=== PATIENT | male | born 1990 ===

== ENCOUNTER 2020-07-02 11:45 | Outpatient (REF) | payer OTHER, SELFPAY | END 2020-07-02 11:46 | disposition home or self-care (01) | LOC: HO.LAB 11:45 | PROVIDERS: Visit Provider Internal Medicine | DX: Z20.828 Contact with and (suspected) exposure to other viral communicable diseases (principal) | CPT/HCPCS: U0003 ==

== ENCOUNTER 2023-12-26 11:44 | Outpatient (AMB) | payer OTHER, SELFPAY ==
[2023-12-26 12:09] VITALS: BP 120/72; PULSE 101; O2SAT 98; BMI 26.0
--- NOTE | 2023-12-26 12:09 | MHC.PC.OV ---
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 He is requesting a tetanus booster. 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 SurgHx: R eyebrow laceration & repair FHx: Mom: HTN, HLD. Dad: Hypothroidism, Heart Palpitations. SocHx: Smoked 1/2 ppd x 9 yrs and now occassional. EtOH: 17-18 dr a week. up to 6 dr in a day. No drugs PFSH Medical History (Updated 12/26/23 @ 12:46 by Carson Gupta) OCD (obsessive compulsive disorder) Anxiety IBS (irritable bowel syndrome) Palpitations Family History (Updated 12/26/23 @ 12:24 by Josseline Rhodes [facility]) Paternal Uncle Substance abuse Mental health disorder Maternal Grandfather Mental health disorder Mother Mental health disorder High blood pressure High cholesterol Father Hypothyroid Maternal Grandmother High blood pressure Paternal Grandfather Cancer of kidney Paternal Grandmother Cardiovascular disease Social History (Updated 12/26/23 @ 12:28 by Josseline Rhodes [facility]) Household Members: Family Both parents involved: Yes Caregiver staying overnight: No Housing: House Are you a primary health care manager to a significant other at home: No Do you presently have visiting nurse or other home services: No 75 years or older and lives alone: No Alcohol intake: current Patient Tobacco Use Status: Current someday Tobacco user Cigarette Packs Per Day: 2 Cigarettes Per Day: 2 e-Cigarette/Vaping Use: Former Use service: No Current occupational status: employed Current occupation: [employer], [employer]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 1. Little interest or pleasure in doing things: not at all 2. Feeling down, depressed, or hopeless: not at all 3. Trouble falling or staying asleep, or sleeping too much: several days 4. Feeling tired or having little energy: not at all 5. Poor appetite or overeating: not at all 6. Feeling bad about yourself - or that you are a failure or have let yourself or your family down: several days 7. Trouble concentrating on things, such as reading the newspaper or watching television: not at all 8. Moving or speaking so slowly that other people could have noticed. Or the opposite - being so fidgety or restless that you have been moving around a lot more than usual: not at all 9. Thoughts that you would be better off or of hurting yourself in some way: not at all Total score: 2 Depression Screening Interpretation: Negative Depression Screening Done: Yes 67951 - PHQ-9 Billing: Yes Source: Developed by Drs. Nii Rodrigues, Angella Funk, Tylor Reese and colleagues, with an educational elva from [employer]. Thrive Questionnaire Date Thrive assessed: 12/26/23 I am a: Patient What is your living situation today?: I have a steady place to live Within the past 12 months, did the food you bought not last and you didn't have the money to get more?: Never true Within the past 12 months, did you worry whether your food would run out before you got money to buy more?: Never true Do you have trouble paying for medicines?: No Do you have trouble getting transportation to medical appointments?: No Do you have trouble paying your heating and electricity bill?: No Do you have trouble taking care of your child, family member or friend?: No Do you have trouble with day-to-day activities such as bathing, preparing meals, shopping, managing finances, etc.?: No Are you currently unemployed and looking for a job?: No Are you interested in more education?: Yes THRIVE Score: 0 PIEDAD-7 AMB Questionnaire PIEDAD-7 Date PIEDAD - 7 assessed: 12/26/23 Feeling nervous, anxious, or on edge: 1 = Several days Not being able to stop or control worryin = Several days Worrying too much about different things: 1 = Several days Trouble relaxin = Not at all Being so restless that it is hard to sit still: 0 = Not at all Becoming easily annoyed or irritable: 1 = Several days Feeling afraid as if something awful might happen: 0 = Not at all Total PIEDAD-7 score (0-4 normal; 5-9 mild; 10-14 moderate; 15-21 severe): 4 Source: Developed by Drs. Nii Rodrigues, Angella Funk, Tylor Reese and colleagues, with an educational elva from [employer]. PIEDAD-7 Assessment Billing PIEDAD-7 Assessment Tool: PIEDAD-7 Assessment 12901 Review of Systems Const Denies chills, Denies fatigue, Denies fever(s), Denies headache(s) and Denies weakness ENT Denies dizziness and Denies headache(s) Card Denies chest pain, Denies lightheadedness, Denies dyspnea and Denies other (Palpitations) Resp Denies cough, Denies dyspnea, Denies wheezing and Denies other ( shortness of breath) Musc Denies numbness and Denies tingling Neuro Denies dizziness, Denies headache(s), Denies numbness, Denies tingling, Denies paresthesias and Denies weakness Psych Denies anxiety and Denies depression Endo Denies fatigue Aller/Immun Denies wheezing Physical exam (Primary Care) Vital Signs: Last Vital Signs Pulse 101 H 12/26/23 12:09 BP 120/72 12/26/23 12:09 Pulse Ox 98 12/26/23 12:09 Oxygen Delivery Method Room Air 12/26/23 12:09 BMI result Body Mass Index 26.0 Tobacco/Smoking Status: Tobacco use Status Tobacco use date assessed 12/26/23 12/26/23 12:34 Patient Tobacco Use Status Current someday Tobacco 12/26/23 12:34 e-Cigarette/Vaping Use Former Use 12/26/23 12:34 PHQ-9: PHQ-9 Score PHQ-9: Total score 2 12/26/23 12:39 Depression Screening Interpretation: Negative Thrive Assessment: Date of Thrive Assessment Date Thrive assessed 12/26/23 12/26/23 12:34 Const General: no acute distress and well developed Nutritional Appearance: well nourished Orientation/consciousness: patient oriented x3 HENMT Head: Yes normocephalic and Yes atraumatic Eyes General: appearance normal, both eyes and all related structures Pupils: Equal, round and reactive pupils present EOM: EOMs intact bilaterally Resp Effort & Inspection: normal respiratory effort Auscultation: clear to auscultation bilaterally Cardio Rate: regular rate Rhythm: regular rhythm Heart sounds: S1 normal heart sound present, S2 normal heart sound present, no gallops, no murmurs and no rubs Neuro General: patient oriented x3 and gait normal Cranial nerves: Yes Equal, round and reactive pupils present Psych Affect: normal affect Assessment and Plan Assessment & Plan (1) Bumps on skin: Code(s): L98.9 - Disorder of the skin and subcutaneous tissue, unspecified Plan: These?appear?to?be?lipomas. Patient?would?like?referral?to?Dermatology?to?discuss (2) Anxiety: Code(s): F41.9 - Anxiety disorder, unspecified Plan: History?of?anxiety?as?a?child Patient?says?that?he?manages?his?anxiety No?current?complaints. He?can?let?me?know?if?he?is?having?any?problems (3) Smoker: Code(s): F17.200 - Nicotine dependence, unspecified, uncomplicated Plan: Intermittent?smoker Recommended?trying?to?quit (4) Alcohol abuse: Code(s): F10.10 - Alcohol abuse, uncomplicated Plan: Encouraged?weaning?down?alcohol?use He?can?let?me?know?if?he?is?having?any?difficulty?with?the (5) Laboratory exam ordered as part of routine general medical examination: Code(s): Z00.00 - Encounter for general adult medical examination without abnormal findings Plan: Check?labs Orders: Orders TDaP Immunization Today Z23 - Encounter for immunization Microalbumin, Random (w Creat) Today I10 - Essential (primary) hypertension CT NG by PCR Today Z11.3 - Encounter for screening for infections with a predominantly sexual mode of transmission Comprehensive Anabel. Panel Fast Today Z00.00 - Encounter for general adult medical examination without abnormal findings Complete Blood Count Auto Diff Today Z00.00 - Encounter for general adult medical examination without abnormal findings Lipid Panel Today Z00.00 - Encounter for general adult medical examination without abnormal findings TSH reflex Free T4 Today Z00.00 - Encounter for general adult medical examination without abnormal findings UA and rflx microscopic Today Z00.00 - Encounter for general adult medical examination without abnormal findings HIV Ab/Ag Today Z11.3 - Encounter for screening for infections with a predominantly sexual mode of transmission Hepatitis B,C Profile Today Z11.3 - Encounter for screening for infections with a predominantly sexual mode of transmission Syphilis Screen Today Z11.3 - Encounter for screening for infections with a predominantly sexual mode of transmission Referrals Dermatology Referral L98.9 - Disorder of the skin and subcutaneous tissue, unspecified Medications: New Boostrix Tdap (diphth,pertus(acell),tetanus) 0.5 mL IM ONCE 0.5 mL 0RF NS Z23 - Encounter for immunization Coding Level of Care Code New Pt Level 3 (00688) Diagnoses Bumps on skin L98.9 Anxiety F41.9 Smoker F17.200 Alcohol abuse F10.10 Laboratory exam ordered as part of routine general medical examination Z00.00 Additional Codes PIEDAD-7 Assessment Billing - PIEDAD-7 Assessment Tool: PIEDAD-7 Assessment 24974 ([id number])
== END 2023-12-26 13:50 | disposition home or self-care (01) ==
PROVIDERS: PCP Family Medicine; Visit Provider Family Medicine
DX: F41.9 Anxiety disorder, unspecified (principal); L98.9 Disorder of the skin and subcutaneous tissue, unspecified; F17.210 Nicotine dependence, cigarettes, uncomplicated; F10.10 Alcohol abuse, uncomplicated
CPT/HCPCS: 99203

== ENCOUNTER 2024-02-20 07:37 | Outpatient (REF) | payer OTHER, SELFPAY ==
[2024-02-20 11:28] LABS: MANUAL DIFF FLAG NO
[2024-02-20 11:31] LABS: Basophils Percent Auto 0.7 % (0-2); Eosinophils Absolute Auto 0.1 X10*3/uL (0.0-0.4); Eosinophils Percent Auto 2.4 % (0-4); Hematocrit 42.9 % (42.0-52.0); Hemoglobin 14.7 g/dl (14.0-18.0); Imm Gran Abs Auto 0.02 X10*3/uL (0.00-0.03); Imm Gran Pct Auto 0.4 % (0.0-0.4); Lymphocytes Absolute Auto 2.4 X10*3/uL (1.2-4.9); Lymphocytes Percent Auto 44.1 % (20-40); Mean Corpuscular HGB Conc 34.3 g/dl (31.0-36.0); Mean Corpuscular Hemoglobin 29.6 pg (27.0-33.0); Mean Corpuscular Volume 86.3 fL (80.0-98.0); Mean Platelet Volume 9.7 fL (9.4-12.4); Monocytes Absolute Auto 0.5 X10*3/uL (0.1-1.2); Monocytes Percent Auto 8.3 % (2-11); Neutrophils Absolute Auto 2.4 x10*3/uL (2.0-8.3); Neutrophils Percent Auto 44.1 % (45-73); Platelet Count 251 X10*3/uL (160-400); Red Blood Count 4.97 X10*6/uL (4.60-5.80); Red Cell Distribution Width 12.7 % (11.0-16.0); White Blood Count 5.5 X10*3/uL (4.8-10.8)
[2024-02-20 11:50] LABS: Appearance Urine Clear; Color Urine Yellow; Glucose Urine UA Negative (Negative); Leukocyte Esterase Urine Negative (Negative); Nitrite Urine Negative (Negative); Specific Gravity - Urine 1.015 (1.005-1.025); Urine Blood Negative (Negative); Urine Ketones Negative (Negative); Urine Protein Negative (Neg-Trace)
[2024-02-20 12:06] LABS: Alanine Aminotransferase 35 U/L (0-40); Albumin Level 4.5 g/dL (3.5-5.0); Alkaline Phosphatase 53 U/L (39-117); Anion Gap 10 (12-20); Aspartate Amino Transferase 35 U/L (5-37); Bilirubin Total 0.5 mg/dL (0.0-1.0); Blood Urea Nitrogen 16 mg/dL (9-16); Calcium 9.8 mg/dL (8.4-10.2); Carbon Dioxide 30 mmol/L (22-29); Chloride 102 mmol/L (96-108); Cholesterol 273 mg/dL (<200); Estimated Glomerular Filt Rate > 60; Glucose Fasting 91 mg/dL (60-99); HDL Cholesterol 52 mg/dL (>40); LDL Cholesterol Calculated 178 mg/dL (<100); Sodium 138 mmol/L (135-145); Total Protein 7.5 g/dL (6.5-8.0); Triglycerides 217 mg/dL (<150)
[2024-02-20 12:20] LABS: HBS Num1 30.35 mIU/mL (0-7.99); HBc Num1 0.13 S/CO (0.00-0.79); HBsAGNum1 0.32 S/CO (0.00-0.99); HIV AB/AG Nonreactive (Nonreactive); Hepatitis B Core Antibody Nonreactive (Nonreactive); Hepatitis B Surface Antigen Negative (Negative); ~HepC Num1 0.09 S/CO (0.00-0.79); ~Hepatitis B Surface Antibody REACTIVE (Nonreactive); ~Hepatitis C Antibody Nonreactive (Nonreactive)
[2024-02-20 12:21] LABS: Syphilis Screen Nonreactive (Nonreactive)
[2024-02-20 13:03] LABS: Creatinine Urine 118.04 mg/dL
== END 2024-02-20 07:38 | disposition home or self-care (01) ==
LOC: HO.WFDLDS 07:37
PROVIDERS: Visit Provider Family Medicine
DX: Z00.00 Encounter for general adult medical examination without abnormal findings (principal); I10 Essential (primary) hypertension; Z11.3 Encounter for screening for infections with a predominantly sexual mode of transmission
CPT/HCPCS: 36415; 80053; 80061; 81003; 82043; 82570; 84443; 85025; 86704; 86706; 86780; 86803; 87340; 87389

== ENCOUNTER → 2024-03-10 09:01 | Outpatient (AMB) | payer OTHER, SELFPAY ==
--- NOTE | 2024-03-10 09:11 | AM.OFFVISNUR ---
Intake Visit Reasons: t booster shot Allergies No Known Allergies Allergy (Verified 12/26/23 12:13) Assessment & Plan Assessment & Plan Orders: Orders TDaP Immunization Today Z23 - Encounter for immunization Medications: New Boostrix Tdap (diphth,pertus(acell),tetanus) 0.5 mL IM ONCE 0.5 mL 0RF NS Z23 - Encounter for immunization
== END ==
PROVIDERS: PCP Family Medicine; Visit Provider Family Medicine
DX: Z23 Encounter for immunization (principal)
CPT/HCPCS: 90471; 90715

== ENCOUNTER 2024-04-28 10:27 | Outpatient (AMB) | payer OTHER, SELFPAY ==
--- NOTE | 2024-04-28 10:40 | A.OFFPC_ITS ---
Vital Signs 04/28/24 10:41 Height 5 ft 6 in Weight 158 lb BMI 25.5 BP 121/71 Blood Pressure Location Rt brachial Position Sitting Respiration 12 Pulse 77 Pulse Source Pulse Oximeter Pulse Oximetry (%) 99 Oxygen Delivery Method Room Air Intake Visit Reasons: CPE Intake Note: Patient is here for a physical and would like to review labs and discuss respiratory concerns. 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 We reviewed his recent labs which are consistent with mild hyper triglyceridemia and hyperlipidemia. He has a family history of high cholesterol. Since he saw these results in February he modified his diet. He cut back on animal fat and alcohol and carbs. He also is smoking much less. He had actually had a cough when he laughed and chest congestion in the morning following a respiratory infection he had back in December. The symptoms have nearly resolved. He had the congestion in the morning prior to the respiratory infection, too. Never had allergy testing, but he would always get a ?cold? in the spring. Someone suggested it may be allergies. No history of asthma. Patient recalls years ago being told he was not immune to MMR. He does not think he ever got a booster vaccine. I ordered the titer. He will also have a fasting lipid profile done. 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 Both ears feel affected. No ear pain or ringing. It is a very loud environment. Patient referred to ENT. ROS: Constitutional: No unexplained weight loss, fever, chills, fatigue or night sweats. Eyes: No vision changes, blurry vision, double vision, eye pain, eye redness, eye discharge. ENT: No ear pain, tinnitus, sneezing, congestion, runny nose or sore throat. Respiratory: No shortness of breath, wheezing or hemoptysis. Cardiovascular: No chest pain, chest pressure or chest discomfort. No palpitations or pedal edema. Gastrointestinal: No anorexia, nausea, vomiting or diarrhea. No abdominal pain or blood in stool. Genitourinary: No dysuria, hematuria, urinary frequency. Neurologic: No headache, dizziness, syncope, unilateral weakness, ataxia, numbness or tingling in the extremities. Musculoskeletal: No muscle pain, back pain, joint pain or swelling. Hematologic/Lymphatics: No bleeding or bruising. No painful lymph nodes. Skin: No rash or itching. Endocrine: No cold or heat intolerance. No polyuria or polydipsia. Psychiatric: No SI/HI. Physical exam: Constitutional: Alert, in no distress. Head: Normocephalic. Eyes: Pupils are equal, round and reactive to light. Extraocular muscles intact. Ear, Nose and Throat: Canals clear. TMs normal. Normal nasal mucosa. No nasal d ischarge. No oral lesions. Mild cobblestoning of the throat. Neck: Supple, Full range of motion. No lymphadenopathy. No palpable thyroid masses. Respiratory: Clear to auscultation. Cardiovascular: S1 S2 regular. No murmurs. Gastrointestinal: Abdomen soft, non-tender, non-distended. Normal bowel sounds. No palpable masses. Genitourinary: Patient deferred. Home exam is normal per patient. Neurologic: No focal neurological deficits. Symmetric patellar reflexes. Moves all extremities spontaneously. Sensation intact bilaterally. Skin: No rashes or lesions. Musculoskeletal: No gross deformities. Normal range of motion. Extremities: Warm and well perfused. No clubbing, cyanosis or edema. 3+ peripheral pulses bilaterally. Psychiatric: Normal mood and affect [facility] Medical History (Updated 04/28/24 @ 11:09 by JAYDE Chan) Pure hypercholesterolemia OCD (obsessive compulsive disorder) Anxiety IBS (irritable bowel syndrome) Palpitations Surgical History (Updated 04/28/24 @ 10:46 by Saba Peters [facility]) No pertinent past surgical history Family History (Updated 12/26/23 @ 12:24 by Josseline Rhodes [facility]) Paternal Uncle Substance abuse Mental health disorder Maternal Grandfather Mental health disorder Mother Mental health disorder High blood pressure High cholesterol Father Hypothyroid Maternal Grandmother High blood pressure Paternal Grandfather Cancer of kidney Paternal Grandmother Cardiovascular disease Social History (Updated 04/28/24 @ 10:45 by Saba Peters [facility]) Household Members: Family Both parents involved: Yes Caregiver staying overnight: No Housing: House Are you a primary day care center director to a significant other at home: No Do you presently have visiting nurse or other home services: No 75 years or older and lives alone: No Alcohol intake: current Alcohol intake frequency: 0-2 drinks per day Alcohol type: beer and hard liquor Patient Tobacco Use Status: Current someday Tobacco user Cigarette Packs Per Day: 2 Cigarettes Per Day: 2 e-Cigarette/Vaping Use: Former Use service: No Current occupational status: employed Current occupation: [employer]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 1. Little interest or pleasure in doing things: not at all 2. Feeling down, depressed, or hopeless: several days 3. Trouble falling or staying asleep, or sleeping too much: several days 4. Feeling tired or having little energy: several days 5. Poor appetite or overeating: not at all 6. Feeling bad about yourself - or that you are a failure or have let yourself or your family down: several days 7. Trouble concentrating on things, such as reading the newspaper or watching te levision: not at all 8. Moving or speaking so slowly that other people could have noticed. Or the opposite - being so fidgety or restless that you have been moving around a lot more than usual: not at all 9. Thoughts that you would be better off or of hurting yourself in some way: not at all Total score: 4 Depression Screening Interpretation: Negative Depression Screening Done: Yes 32014 - PHQ-9 Billing: Yes Source: Developed by Drs. Nii Rodrigues, Angella Funk, Tylor Reese and colleagues, with an educational elva from [employer]. Thrive Questionnaire Date Thrive assessed: 04/28/24 I am a: Patient What is your living situation today?: I have a steady place to live Within the past 12 months, did the food you bought not last and you didn't have the money to get more?: Never true Within the past 12 months, did you worry whether your food would run out before you got money to buy more?: Never true Do you have trouble paying for medicines?: No Do you have trouble getting transportation to medical appointments?: No Do you have trouble paying your heating and electricity bill?: No Do you have trouble taking care of your child, family member or friend?: No Do you have trouble with day-to-day activities such as bathing, preparing meals, shopping, managing finances, etc.?: No Are you currently unemployed and looking for a job?: No Are you interested in more education?: No Please select the resources that you would like help with: None Currently or been in a relationship where the following occur: No concerns reported THRIVE Score: 0 AUDIT C Alcohol Use Questionnaire (AUDIT-C) 1. How often do you have a drink containing alcohol?: 4 or more times a week 2. How many drinks containing alcohol do you have on a typical day when you are drinking?: 1 or 2 3. How often do you have six or more drinks on one occasion?: Never Total Score: 4 PIEDAD-7 AMB Questionnaire PIEDAD-7 Date PIEDAD - 7 assessed: 04/28/24 Feeling nervous, anxious, or on edge: 1 = Several days Not being able to stop or control worryin = Several days Worrying too much about different things: 1 = Several days Trouble relaxin = Several days Being so restless that it is hard to sit still: 0 = Not at all Becoming easily annoyed or irritable: 1 = Several days Feeling afraid as if something awful might happen: 1 = Several days Total PIEDAD-7 score (0-4 normal; 5-9 mild; 10-14 moderate; 15-21 severe): 6 Source: Developed by Drs. Nii Rodrigues, Angella Funk, Tylor Reese and colleagues, with an educational elva from [employer]. PIEDAD-7 Assessment Billing PIEDAD-7 Assessment Tool: PIEDAD-7 Assessment 87201 Physical exam (Primary Care) Vital Signs: Last Vital Signs Pulse 77 04/28/24 10:41 Resp 12 04/28/24 10:41 BP 121/71 04/28/24 10:41 Pulse Ox 99 04/28/24 10:41 Oxygen Delivery Method Room Air 04/28/24 10:41 BMI result Body Mass Index 25.5 Tobacco/Smoking Status: Tobacco use Status Tobacco use date assessed 12/26/23 04/28/24 10:44 Patient Tobacco Use Status Current someday Tobacco 04/28/24 10:45 e-Cigarette/Vaping Use Former Use 04/28/24 10:45 PHQ-9: PHQ-9 Score PHQ-9: Total score 4 04/28/24 11:00 Depression Screening Interpretation: Negative Thrive Assessment: Date of Thrive Assessment Date Thrive assessed 04/28/24 04/28/24 10:49 Currently or been in a relationship where the following occur: No concerns reported Assessment and Plan Assessment & Plan (1) Routine physical examination: Code(s): Z00.00 - Encounter for general adult medical examination without abnormal findings Plan: Patient is seen today for a routine physical. As part of this visit we reviewed the following issues, which are considered and essential part of preventative health in this age group: - Testicular cancer screening, which includes self exam teaching - Screening for colon cancer - Blood pressure screening - Nutritional and exercise counseling - Counseling of injury prevention including fire prevention, smoke alarms and seat belt usage - Screening for depression - Prevention of and/or testing for infectious diseases - Education about skin cancer - Recommendations about immunizations - Recommendation of an eye exam (2) Pure hypercholesterolemia: Code(s): E78.00 - Pure hypercholesterolemia, unspecified Plan: Lifestyle modifications reviewed in detail with the patient. He is exercising 3 days per week. He will return for fasting lipid profile in 2 months. (3) Cough: Code(s): R05.9 - Cough, unspecified Qualifiers: Cough type: unspecified Qualified Code(s): R05.9 - Cough, unspecified Plan: Patient may have postviral reactive airway which is now resolving. Smoking may contribute to this. Discussed if this becomes a pattern we should proceed with pulmonary function test and chest x-ray. Recommended trial of antihistamine daily for a couple of weeks and smoking cessation completely. Patient declined follow since symptoms are nearly gone. If he does not have complete resolution of symptoms in a month he says he will contact the office. Plan Follow up in 1 year for physical exam. Orders: Orders Lipid Panel Today E78.00 - Pure hypercholesterolemia, unspecified MMR IgG Measles Mumps Rubella Today Z01.84 - Encounter for antibody response examination Referrals Ear/Nose/Throat Referral H91.90 - Unspecified hearing loss, unspecified ear Coding Level of Care Code Est Pt Prev Care [id number]([id number]) Diagnoses Routine physical examination Z00.00 Pure hypercholesterolemia E78.00 Cough, unspecified type R05.9 Cough type: unspecified Additional Codes PIEDAD-7 Assessment Billing - PIEDAD-7 Assessment Tool: PIEDAD-7 Assessment 13507 ([id number])
[2024-04-28 10:41] VITALS: BP 121/71; PULSE 77; RESP 12; O2SAT 99; BMI 25.5
== END 2024-04-28 11:27 | disposition home or self-care (01) ==
PROVIDERS: PCP Family Medicine; Visit Provider Physician Assistant Medical
DX: Z00.00 Encounter for general adult medical examination without abnormal findings (principal); E78.00 Pure hypercholesterolemia, unspecified; R05.9 Cough, unspecified
CPT/HCPCS: 99395

== ENCOUNTER 2024-07-30 08:38 | Outpatient (REF) | payer OTHER, SELFPAY ==
[2024-07-30 11:47] LABS: Cholesterol 211 mg/dL (<200); HDL Cholesterol 62 mg/dL (>40); LDL Cholesterol Calculated 130 mg/dL (<100); Triglycerides 95 mg/dL (<150)
[2024-08-01 22:33] LABS: Rubella IgG Antibody 1.53 Index
== END 2024-07-30 08:39 | disposition home or self-care (01) ==
LOC: HO.WFDLDS 08:38
PROVIDERS: Visit Provider Physician Assistant Medical
DX: E78.00 Pure hypercholesterolemia, unspecified (principal); Z01.84 Encounter for antibody response examination
CPT/HCPCS: 36415; 80061; 86735; 86762; 86765

== ENCOUNTER 2025-05-05 08:56 | Outpatient (AMB) | payer OTHER, SELFPAY ==
--- NOTE | 2025-05-05 08:59 | MHC.PC.OV ---
Vital Signs 05/05/25 09:07 Height 5 ft 6 in Weight 154 lb 4 oz BMI 24.9 BP 120/70 Blood Pressure Location Lt brachial Position Sitting Respiration 12 Pulse 71 Pulse Source Pulse Oximeter Temp 97.1 F Temp Source Oral Pulse Oximetry (%) 99 Oxygen Delivery Method Room Air Intake Visit Reasons: PHYSICAL EXAM Intake Note: CPE. Patient wants to know where is his cholesterol. Patient wants a dermatology referral. 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 No recent labs. We discussed that his cholesterol had been high in the past. He is watching his diet and exercising Lumps on skin at bilateral forearms. No tenderness, erythema. No other complaints. Patient feels well. [facility] Medical History (Updated 05/05/25 @ 09:57 by Grey Larry MD) Pure hypercholesterolemia OCD (obsessive compulsive disorder) Anxiety IBS (irritable bowel syndrome) Palpitations Surgical History (Updated 04/28/24 @ 10:46 by Saba Peters [facility]) No pertinent past surgical history Family History (Updated 12/26/23 @ 12:24 by Josseline Rhodes CMA) Paternal Uncle Substance abuse Mental health disorder Maternal Grandfather Mental health disorder Mother Mental health disorder High blood pressure High cholesterol Father Hypothyroid Maternal Grandmother High blood pressure Paternal Grandfather Cancer of kidney Paternal Grandmother Cardiovascular disease Social History (Updated 04/28/24 @ 10:45 by Saba Peters [facility]) Household Members: Family Both parents involved: Yes Caregiver staying overnight: No Housing: House Are you a primary specialist wound care to a significant other at home: No Do you presently have visiting nurse or other home services: No 75 years or older and lives alone: No Alcohol intake: current Alcohol intake frequency: 0-2 drinks per day Alcohol type: beer and hard liquor Patient Tobacco Use Status: Current someday Tobacco user Cigarette Packs Per Day: 2 Cigarettes Per Day: 2 e-Cigarette/Vaping Use: Former Use service: No Current occupational status: employed 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 1. Little interest or pleasure in doing things: not at all 2. Feeling down, depressed, or hopeless: several days 3. Trouble falling or staying asleep, or sleeping too much: not at all 4. Feeling tired or having little energy: several days 5. Poor appetite or overeating: not at all 6. Feeling bad about yourself - or that you are a failure or have let yourself or your family down: several days 7. Trouble concentrating on things, such as reading the newspaper or watching television: not at all 8. Moving or speaking so slowly that other people could have noticed. Or the opposite - being so fidgety or restless that you have been moving around a lot more than usual: not at all 9. Thoughts that you would be better off or of hurting yourself in some way: not at all Total score: 3 Depression Screening Interpretation: Negative Depression Screening Done: Yes 85529 - PHQ-9 Billing: Yes Source: Developed by Drs. Nii Rodrigues, Angella Funk, Tylor Reese and colleagues, with an educational elva from [employer]. Thrive Questionnaire Date Thrive assessed: 05/05/25 I am a: Patient What is your living situation today?: I have a steady place to live Within the past 12 months, did the food you bought not last and you didn't have the money to get more?: Never true Within the past 12 months, did you worry whether your food would run out before you got money to buy more?: Never true Do you have trouble paying for medicines?: No Do you have trouble getting transportation to medical appointments?: No Do you have trouble paying your heating and electricity bill?: No Do you have trouble taking care of your child, family member or friend?: No Do you have trouble with day-to-day activities such as bathing, preparing meals, shopping, managing finances, etc.?: No Are you currently unemployed and looking for a job?: No Are you interested in more education?: No Please select the resources that you would like help with: None Currently or been in a relationship where the following occur: No concerns reported THRIVE Score: 0 AUDIT C Alcohol Use Questionnaire (AUDIT-C) 1. How often do you have a drink containing alcohol?: 4 or more times a week 2. How many drinks containing alcohol do you have on a typical day when you are drinking?: 3 or 4 3. How often do you have six or more drinks on one occasion?: Weekly Total Score: 8 PIEDAD-7 AMB Questionnaire PIEDAD-7 Date PIEDAD - 7 assessed: 05/05/25 Feeling nervous, anxious, or on edge: 1 = Several days Not being able to stop or control worryin = Not at all Worrying too much about different things: 1 = Several days Trouble relaxin = Several days Being so restless that it is hard to sit still: 0 = Not at all Becoming easily annoyed or irritable: 1 = Several days Feeling afraid as if something awful might happen: 0 = Not at all Total PIEDAD-7 score (0-4 normal; 5-9 mild; 10-14 moderate; 15-21 severe): 4 Source: Developed by Drs. Nii Rodrigues, Angella Funk, Tylor Reese and colleagues, with an educational elva from [employer]. PIEDAD-7 Assessment Billing PIEDAD-7 Assessment Tool: PIEDAD-7 Assessment 93926 Review of Systems Const Denies chills, Denies fatigue, Denies fever(s), Denies headache(s) and Denies weakness Eyes Denies change in vision ENT Denies dizziness, Denies headache(s), Denies hearing loss, Denies nasal congestion, Denies sinus pain, Denies sinus pressure and Denies sore throat Card Denies chest pain, Denies lightheadedness, Denies dyspnea and Denies other (palpitations) Resp Denies cough, Denies dyspnea and Denies wheezing GI Denies abdominal pain, Denies melena, Denies hematochezia, Denies change in bowel habits, Denies dyspepsia and Denies nausea Denies hematuria and Denies dysuria Musc Denies abnormal gait, Denies myalgias, Denies arthralgias, Denies numbness and Denies tingling Skin/Breast Details: Lumps on skin at bilateral forearms Denies rash, Denies unusual bruising and Denies wounds Neuro Denies abnormal gait, Denies dizziness, Denies headache(s), Denies memory loss, Denies numbness, Denies Sensory deficit (Neuro), Denies tingling and Denies weakness Psych Denies anxiety, Denies depression and Denies memory loss Endo Denies cold intolerance, Denies fatigue, Denies heat intolerance, Denies polydipsia and Denies polyuria Pio/Lymph Denies easy bleeding and Denies easy bruising Aller/Immun Denies wheezing Physical exam (Primary Care) Vital Signs: Last Vital Signs Temp 97.1 F 05/05/25 09:07 Pulse 71 05/05/25 09:07 Resp 12 05/05/25 09:07 BP 120/70 05/05/25 09:07 Pulse Ox 99 05/05/25 09:07 Oxygen Delivery Method Room Air 05/05/25 09:07 BMI result Body Mass Index 24.9 Tobacco/Smoking Status: Tobacco use Status Tobacco use date assessed 05/05/25 05/05/25 09:01 Patient Tobacco Use Status Current someday Tobacco 05/05/25 09:01 e-Cigarette/Vaping Use Former Use 05/05/25 09:01 PHQ-9: PHQ-9 Score PHQ-9: Total score 3 05/05/25 09:01 Depression Screening Interpretation: Negative Thrive Assessment: Date of Thrive Assessment Date Thrive assessed 05/05/25 05/05/25 09:01 Currently or been in a relationship where the following occur: No concerns reported Const General: no acute distress, well developed, alert and awake Nutritional Appearance: well nourished Orientation/consciousness: patient oriented x3 HENMT Head: Yes normocephalic and Yes atraumatic Ears: hearing grossly normal bilaterally and TM's normal bilaterally General nose exam: Normal external nose present and Normal nares present Mouth: Normal oral and palatal mucosa present and moist mucous membranes Teeth and gingiva: dentition normal Throat: Yes posterior oropharynx normal Eyes Pupils: Equal, round and reactive pupils present and Pupil accommodation reflex normal EOM: EOMs intact bilaterally Neck Neck: Yes normal visual inspection, Yes no lymphadenopathy and Yes trachea midline Thyroid: Thyroid normal Carotids: no bruits Lymphatic: no lymphadenopathy noted Chest Chest palpation & inspection: normal inspection of the chest Resp Effort & Inspection: normal respiratory effort Auscultation: clear to auscultation bilaterally Cardio Rate: regular rate Rhythm: regular rhythm Heart sounds: S1 normal heart sound present, S2 normal heart sound present, no gallops, no murmurs and no rubs Bruits: no abdominal aortic bruits and no carotid bruits GI Palpation (GI): No Abdominal aortic bruit present, Soft to palpation, nontender, No hepatosplenomegaly present and No Rebound tenderness present Auscultation: normal bowel sounds General: Yes no CVA tenderness Back/Spine/Pelvis Back: no CVA tenderness Cervical Spine: cervical ROM normal and No Cervical spine tenderness Thoracic/Lumbar Spine: thoraco-lumbar ROM normal, No pain with thoraco-lumbar ROM, No thoracic spinal tenderness and No lumbar spinal tenderness Skin Other: Several fluctuant lumps on skin at bilateral forearms. These mobile. No skin rash, drainage or erythema. Lesions: lesions noted Rashes: no rashes Trauma: no lacerations or abrasions Wounds: no wounds Nails: normal Neuro General: patient oriented x3, gait normal and CN's II-XI intact bilaterally Cranial nerves: Yes Equal, round and reactive pupils present Cognition (Neuro): normal cognition Gait exam (Neuro): Normal gait present Motor exam (neuro): 5/5 motor strength present throughout Sensory Exam: No Sensory deficit (Neuro) Deep tendon reflexes (DTR's): Right patellar reflex intensity grade: 2+ and Left patellar reflex intensity grade: 2+ Extrem General: Yes normal to inspection and No edema Psych Appearance: grossly normal Affect: normal affect Attitude: cooperative Thought process: Normal thought process present Coding Level of Care Code Tele Est Pt Level 3 (05451) Est Pt Prev Care 18-39y(27619) Diagnoses Adult general medical exam Z00.00 Pure hypercholesterolemia E78.00 Bumps on skin L98.9 Smoker F17.200 Additional Codes PIEDAD-7 Assessment Billing - PIEDAD-7 Assessment Tool: PIEDAD-7 Assessment 38229 ([id number]) PHQ-9 - 58513 - PHQ-9 Billing: Yes ([id number]) Assessment & Plan Assessment & Plan (1) Adult general medical exam: Code(s): Z00.00 - Encounter for general adult medical examination without abnormal findings Category: Medical Plan: 35-year-old male presents for complete physical exam Exam within normal limits today except as noted below. Encouraged healthy diet with active lifestyle and plenty of exercise (2) Pure hypercholesterolemia: Code(s): E78.00 - Pure hypercholesterolemia, unspecified Category: Medical Plan: Recheck lipids Will follow-up together by telemedicine in about a month (3) Bumps on skin: Code(s): L98.9 - Disorder of the skin and subcutaneous tissue, unspecified Category: Medical Plan: Likely lipomas Checking ultrasound (4) Smoker: Code(s): F17.200 - Nicotine dependence, unspecified, uncomplicated Category: Social Hx Plan: Encouraged cessation Orders: Orders Microalbumin, Random (w Creat) Today I10 - Essential (primary) hypertension US Extremity Nonvas Limited LT Today L98.9 - Disorder of the skin and subcutaneous tissue, unspecified US Extremity Nonvas Limited RT Today L98.9 - Disorder of the skin and subcutaneous tissue, unspecified Comprehensive [place]. Panel Fast Today Z00.00 - Encounter for general adult medical examination without abnormal findings Complete Blood Count Auto Diff Today Z00.00 - Encounter for general adult medical examination without abnormal findings Lipid Panel Today Z00.00 - Encounter for general adult medical examination without abnormal findings TSH reflex Free T4 Today Z00.00 - Encounter for general adult medical examination without abnormal findings UA CC w/rflx Micro + Cult Today Z00.00 - Encounter for general adult medical examination without abnormal findings
[2025-05-05 09:07] VITALS: BP 120/70; PULSE 71; RESP 12; TEMP 36.2; O2SAT 99; BMI 24.9
== END 2025-05-05 09:54 | disposition home or self-care (01) ==
LOC: HO.HMCFM 08:57
PROVIDERS: PCP Family Medicine; Visit Provider Family Medicine
DX: Z00.00 Encounter for general adult medical examination without abnormal findings (principal); E78.00 Pure hypercholesterolemia, unspecified; L98.9 Disorder of the skin and subcutaneous tissue, unspecified; F17.200 Nicotine dependence, unspecified, uncomplicated

== ENCOUNTER → 2025-05-05 08:56 | Outpatient (BNVA) | payer OTHER, SELFPAY | PROVIDERS: PCP Family Medicine; Visit Provider Family Medicine | DX: E78.00 Pure hypercholesterolemia, unspecified (principal); L98.9 Disorder of the skin and subcutaneous tissue, unspecified; I10 Essential (primary) hypertension; F17.200 Nicotine dependence, unspecified, uncomplicated | CPT/HCPCS: 96127; 99212; 99395 ==

== ENCOUNTER 2025-05-13 08:03 | Outpatient (REF) | payer OTHER, SELFPAY ==
[2025-05-13 11:52] LABS: Appearance Urine Clear; Glucose Urine UA Negative (Negative); PH 7.0 (5.0-9.0); Specific Gravity - Urine <= 1.005 (1.005-1.025)
[2025-05-13 12:32] LABS: MANUAL DIFF FLAG NO
[2025-05-13 12:34] LABS: Hematocrit 40.7 % (42.0-52.0); Hemoglobin 14.1 g/dl (14.0-18.0); Imm Gran Abs Auto 0.01 X10*3/uL (0.00-0.03); Imm Gran Pct Auto 0.2 % (0.0-0.4); Lymphocytes Absolute Auto 2.1 X10*3/uL (1.2-4.9); Mean Corpuscular HGB Conc 34.6 g/dl (31.0-36.0); Mean Corpuscular Hemoglobin 29.6 pg (27.0-33.0); Mean Corpuscular Volume 85.3 fL (80.0-98.0); NRBC Abs Auto 0.000 X10*3/uL (0.0-0.012); NRBC Pct Auto 0.0 /100WBC (0.0-0.2); Platelet Count 261 X10*3/uL (160-400); Red Blood Count 4.77 X10*6/uL (4.60-5.80); White Blood Count 5.4 X10*3/uL (4.8-10.8)
[2025-05-13 13:00] LABS: Alanine Aminotransferase 29 U/L (0-40); Albumin Level 4.9 g/dL (3.5-5.0); Alkaline Phosphatase 48 U/L (39-117); Anion Gap 11 (12-20); Aspartate Amino Transferase 42 U/L (5-37); Blood Urea Nitrogen 13 mg/dL (9-16); Calcium 9.2 mg/dL (8.4-10.2); Carbon Dioxide 28 mmol/L (22-29); Chloride 104 mmol/L (96-108); Cholesterol 210 mg/dL (<200); Estimated Glomerular Filt Rate > 60; HDL Cholesterol 57 mg/dL (>40); Potassium 3.8 mmol/L (3.3-5.1); Sodium 139 mmol/L (135-145); Total Protein 7.3 g/dL (6.5-8.0); Triglycerides 90 mg/dL (<150)
== END 2025-05-13 08:04 | disposition home or self-care (01) ==
LOC: HO.WFDLDS 08:03
PROVIDERS: Visit Provider Family Medicine
DX: Z00.00 Encounter for general adult medical examination without abnormal findings (principal); I10 Essential (primary) hypertension
CPT/HCPCS: 36415; 80053; 80061; 81003; 82043; 82570; 84443; 85025

== ENCOUNTER 2025-06-10 16:07 | Outpatient (AMB) | payer OTHER, SELFPAY ==
--- NOTE | 2025-06-10 15:39 | MHC.PC.OV ---
Intake Visit Reasons: F/U CPE / Labs Intake Note: patient here for Telehealth follow up on CPE labs Asset Analyst Required: No Allergies No Known Allergies Allergy (Verified 06/10/25 15:39) Tobacco use date assessed: 06/10/25 Dental Screening Dental Screen Date: 06/10/25 Did you have a dental visit in the last 12 months?: No Did you have a dental problem in the last 6 months where you did not have access to dental care?: No Was dental information given to patient?: No HPI F/U CPE / Labs HPI Details 35 y/o male presents to f/u CPE-labs via telemedicine. Labs drawn 05/13/25. Reviewed labs with pt. Elevated AST of 42. Triglycerides 90. TC 210. LDL 135. HDL 57. TSH 1.52. PFSH Medical History (Updated 06/10/25 @ 17:14 by Carson Gupta) Pure hypercholesterolemia OCD (obsessive compulsive disorder) Anxiety IBS (irritable bowel syndrome) Palpitations Surgical History (Updated 04/28/24 @ 10:46 by Saba Peters [facility]) No pertinent past surgical history Family History (Updated 12/26/23 @ 12:24 by Josseline Rhodes [facility]) Paternal Uncle Substance abuse Mental health disorder Maternal Grandfather Mental health disorder Mother Mental health disorder High blood pressure High cholesterol Father Hypothyroid Maternal Grandmother High blood pressure Paternal Grandfather Cancer of kidney Paternal Grandmother Cardiovascular disease Social History (Updated 04/28/24 @ 10:45 by Saba Peters [facility]) Household Members: Family Both parents involved: Yes Caregiver staying overnight: No Housing: House Are you a primary multi care technician to a significant other at home: No Do you presently have visiting nurse or other home services: No 75 years or older and lives alone: No Alcohol intake: current Alcohol intake frequency: 0-2 drinks per day Alcohol type: beer and hard liquor Patient Tobacco Use Status: Current someday Tobacco user Cigarette Packs Per Day: 2 Cigarettes Per Day: 2 e-Cigarette/Vaping Use: Former Use service: No Current occupational status: employed Current occupation: [employer] work Cognitive needs: No Hearing needs: No Vision needs: No Questionnaire Thrive Questionnaire Date Thrive assessed: 05/05/25 PIEDAD-7 AMB Questionnaire PIEDAD-7 Date PIEDAD - 7 assessed: 05/05/25 Source: Developed by Drs. Nii Rodrigues, Angella Funk, Tylor Reese and colleagues, with an educational elva from [employer]. Review of Systems Const Denies chills, Denies fatigue, Denies fever(s), Denies headache(s) and Denies weakness ENT Denies dizziness and Denies headache(s) Card Denies dyspnea Resp Denies cough, Denies dyspnea, Denies wheezing and Denies other (shortness of breath) Musc Denies numbness and Denies tingling Neuro Denies dizziness, Denies headache(s), Denies numbness, Denies tingling and Denies weakness Psych Denies anxiety and Denies depression Endo Denies fatigue Aller/Immun Denies wheezing Physical exam (Primary Care) Tobacco/Smoking Status: Tobacco use Status Tobacco use date assessed 06/10/25 06/10/25 15:40 Patient Tobacco Use Status Current someday Tobacco 06/10/25 15:40 e-Cigarette/Vaping Use Former Use 06/10/25 15:40 Thrive Assessment: Date of Thrive Assessment Date Thrive assessed 05/05/25 06/10/25 15:40 Const General: well developed; No acute distress Nutritional Appearance: well nourished Orientation/consciousness: patient oriented x3 HENMT Head: Yes normocephalic and Yes atraumatic Eyes General: appearance normal, both eyes and all related structures Pupils: Equal, round and reactive pupils present EOM: EOMs intact bilaterally Resp Effort & Inspection: normal respiratory effort Neuro General: patient oriented x3 and gait normal Cranial nerves: Yes Equal, round and reactive pupils present Psych Affect: normal affect Telehealth Telehealth Telehealth Platform: Telephone Location of provider rendering services: practice address Location of patient: address on file Patient Identification confirmed using: Name, : Yes Telehealth method: voice only Patient verbally consented to treatment: Yes Patient verbally consented to billing insurance company: Yes Patient informed of any privacy concerns related to visit: Yes Minutes spent on Phone/Video with Pt.: 7 Coding Level of Care Code Tele Est Pt Level 2 (35473) Diagnoses Hypercholesterolemia E78.00 Elevated AST (SGOT) R74.01 Assessment & Plan Assessment & Plan (1) Hypercholesterolemia: Code(s): E78.00 - Pure hypercholesterolemia, unspecified Category: Medical Plan: LDL cholesterol is still above goal of less than 100 He will continue to work on this Repeating lipids with next blood draw and if still significantly elevated, will discuss medication (2) Elevated AST (SGOT): Code(s): R74.01 - Elevation of levels of liver transaminase levels Category: Medical Plan: Will recheck with next blood draw If still elevated will discuss imaging by ultrasound
== END 2025-06-10 17:00 | disposition home or self-care (01) ==
LOC: HO.HMCFM 16:07
PROVIDERS: PCP Family Medicine; Visit Provider Family Medicine
DX: E78.00 Pure hypercholesterolemia, unspecified (principal); R74.01 Elevation of levels of liver transaminase levels

== ENCOUNTER 2025-08-04 14:42 | Outpatient (REF) | payer OTHER, SELFPAY ==
[2025-08-04 17:50] LABS: Appearance Urine Clear; Glucose Urine UA Negative (Negative); PH 7.5 (5.0-9.0); Specific Gravity - Urine <= 1.005 (1.005-1.025)
[2025-08-04 17:56] LABS: MANUAL DIFF FLAG NO
[2025-08-04 18:09] LABS: Hematocrit 42.5 % (42.0-52.0); Hemoglobin 14.5 g/dl (14.0-18.0); Imm Gran Abs Auto 0.01 X10*3/uL (0.00-0.03); Imm Gran Pct Auto 0.2 % (0.0-0.4); Lymphocytes Absolute Auto 2.2 X10*3/uL (1.2-4.9); Mean Corpuscular HGB Conc 34.1 g/dl (31.0-36.0); Mean Corpuscular Hemoglobin 29.1 pg (27.0-33.0); Mean Corpuscular Volume 85.2 fL (80.0-98.0); NRBC Abs Auto 0.000 X10*3/uL (0.0-0.012); NRBC Pct Auto 0.0 /100WBC (0.0-0.2); Platelet Count 274 X10*3/uL (160-400); Red Blood Count 4.99 X10*6/uL (4.60-5.80); White Blood Count 6.4 X10*3/uL (4.8-10.8)
[2025-08-04 18:31] LABS: Alanine Aminotransferase 28 U/L (0-40); Albumin Level 5.2 g/dL (3.5-5.0); Alkaline Phosphatase 52 U/L (39-117); Anion Gap 15 (12-20); Aspartate Amino Transferase 38 U/L (5-37); Blood Urea Nitrogen 11 mg/dL (9-16); Calcium 9.5 mg/dL (8.4-10.2); Carbon Dioxide 28 mmol/L (22-29); Chloride 103 mmol/L (96-108); Cholesterol 221 mg/dL (<200); Estimated Glomerular Filt Rate > 60; HDL Cholesterol 53 mg/dL (>40); Lipase 50 U/L (8-78); Potassium 3.8 mmol/L (3.3-5.1); Sodium 142 mmol/L (135-145); Total Protein 7.7 g/dL (6.5-8.0); Triglycerides 215 mg/dL (<150)
== END 2025-08-04 14:43 | disposition home or self-care (01) ==
LOC: HO.WFDLDS 14:42
PROVIDERS: PCP Family Medicine; Visit Provider Family Medicine
DX: M79.601 Pain in right arm (principal); M54.9 Dorsalgia, unspecified; M77.8 Other enthesopathies, not elsewhere classified; R10.11 Right upper quadrant pain
CPT/HCPCS: 36415; 80053; 80061; 81003; 83615; 83690; 85025; 99212

== ENCOUNTER 2025-08-04 14:42 | Outpatient (AMB) | payer OTHER, SELFPAY ==
--- NOTE | 2025-08-04 14:46 | MHC.PC.OV ---
Vital Signs 08/04/25 14:49 Height 5 ft 6 in Weight 152 lb 6 oz BMI 24.6 BP 114/68 Blood Pressure Location Rt brachial Position Sitting Respiration 13 Pulse 92 Pulse Source Pulse Oximeter Temp 97.7 F Temp Source Temporal Artery Scan Pulse Oximetry (%) 99 Oxygen Delivery Method Room Air Intake Visit Reasons: abdominal & back pain Intake Note: Jim presents in the office today for abdominal and back pain as well as right upper forearm near the elbow. Knife Grinder Required: No Allergies No Known Allergies Allergy (Verified 08/04/25 14:48) Medication List - Last Reconciled 08/04/25 by Grey Larry MD sildenafil 50 mg PO DAILY PRN Tobacco use date assessed: 08/04/25 Dental Screening Dental Screen Date: 08/04/25 Did you have a dental visit in the last 12 months?: No Did you have a dental problem in the last 6 months where you did not have access to dental care?: No Was dental information given to patient?: Patient declined HPI abdominal & back pain HPI Details 35 y/o male presents today with complaints of abd. pain, back pain. Also reports R arm pain. Notes hx of tennis elbow. Reports R sided back pain. Notes he lifts weights but has not been lifting recently. Has not been taking any meds for relief. Does note back pain/arm pain improving a little. Notes RUQ abd. pain, intermittent. He continues to drink fluids. Passes stool normally. [facility] Medical History (Updated 08/04/25 @ 15:42 by Grey Larry MD) Pure hypercholesterolemia OCD (obsessive compulsive disorder) Anxiety IBS (irritable bowel syndrome) Palpitations Surgical History (Updated 04/28/24 @ 10:46 by Saba Peters [facility]) No pertinent past surgical history Family History Paternal Uncle Substance abuse Mental health disorder Maternal Grandfather Mental health disorder Mother Mental health disorder High blood pressure High cholesterol Father Hypothyroid Maternal Grandmother High blood pressure Paternal Grandfather Cancer of kidney Paternal Grandmother Cardiovascular disease Social History (Updated 08/04/25 @ 14:49 by Betzaida Delatorre CMA) Household Members: Family Both parents involved: Yes Caregiver staying overnight: No Housing: House Are you a primary manager wound care to a significant other at home: No Do you presently have visiting nurse or other home services: No 75 years or older and lives alone: No Alcohol intake: current Alcohol intake frequency: 0-2 drinks per day Alcohol type: beer and hard liquor Patient Tobacco Use Status: Current someday Tobacco user Cigarette Packs Per Day: 2 Cigarettes Per Day: 2 e-Cigarette/Vaping Use: Former Use Use of substances other than those prescribed or required for medical reasons: Yes Substance Use Type: Marijuana service: No Current occupational status: employed Current occupation: [employer] work Cognitive needs: No Hearing needs: No Vision needs: No Questionnaire Thrive Questionnaire Date Thrive assessed: 05/03/25 I am a: Patient What is your living situation today?: I have a steady place to live Within the past 12 months, did the food you bought not last and you didn't have the money to get more?: Never true Within the past 12 months, did you worry whether your food would run out before you got money to buy more?: Never true Do you have trouble paying for medicines?: No Do you have trouble getting transportation to medical appointments?: No Do you have trouble paying your heating and electricity bill?: No Do you have trouble taking care of your child, family member or friend?: No Do you have trouble with day-to-day activities such as bathing, preparing meals, shopping, managing finances, etc.?: No Are you currently unemployed and looking for a job?: No Are you interested in more education?: No Please select the resources that you would like help with: None Currently or been in a relationship where the following occur: No concerns reported THRIVE Score: 0 PIEDAD-7 AMB Questionnaire PIEDAD-7 Date PIEDAD - 7 assessed: 05/05/25 Source: Developed by Drs. Nii Rodrigues, Angella Funk, Tylor Reese and colleagues, with an educational elva from [employer]. Review of Systems Const Denies chills, Denies fatigue, Denies fever(s), Denies headache(s) and Denies weakness ENT Denies dizziness and Denies headache(s) Card Denies dyspnea Resp Denies cough, Denies dyspnea, Denies wheezing and Denies other (shortness of breath) GI Reports abdominal pain Musc Reports back pain, Denies numbness and Denies tingling Neuro Denies dizziness, Denies headache(s), Denies numbness, Denies tingling and Denies weakness Psych Denies anxiety and Denies depression Endo Denies fatigue Aller/Immun Denies wheezing Physical exam (Primary Care) Vital Signs: Last Vital Signs Temp 97.7 F 08/04/25 14:49 Pulse 92 08/04/25 14:49 Resp 13 08/04/25 14:49 BP 114/68 08/04/25 14:49 Pulse Ox 99 08/04/25 14:49 Oxygen Delivery Method Room Air 08/04/25 14:49 BMI result Body Mass Index 24.6 Tobacco/Smoking Status: Tobacco use Status Tobacco use date assessed 08/04/25 08/04/25 14:51 Patient Tobacco Use Status Current someday Tobacco 08/04/25 14:49 e-Cigarette/Vaping Use Former Use 08/04/25 14:49 Thrive Assessment: Date of Thrive Assessment Date Thrive assessed 05/03/25 08/04/25 14:47 Currently or been in a relationship where the following occur: No concerns reported Const General: well developed; No acute distress Nutritional Appearance: well nourished Orientation/consciousness: patient oriented x3 [facility] Head: Yes normocephalic and Yes atraumatic Eyes General: appearance normal, both eyes and all related structures Pupils: Equal, round and reactive pupils present EOM: EOMs intact bilaterally Resp Effort & Inspection: normal respiratory effort Neuro General: patient oriented x3 and gait normal Cranial nerves: Yes Equal, round and reactive pupils present Psych Affect: normal affect Coding Level of Care Code Est Pt Level 4 (23863) Diagnoses Abdominal pain R10.9 Back pain M54.9 Right arm pain M79.601 Assessment & Plan Assessment & Plan (1) Abdominal pain: Code(s): R10.9 - Unspecified abdominal pain Category: Medical Plan: Intermittent abdominal pain which migrates from right upper quadrant to left upper quadrant and sometimes left lower quadrant. Abdomen today was soft and nontender, mildly tympanic No rebound tenderness Likely some bloating and constipation as patient has noted in past that does not drink enough water. Checking lab work to rule out other causes Checking urinalysis as well Will get KUB Will have patient try bowel rest regimen with clear liquid diet and then advance diet as tolerated He will let know if symptoms worsen or not improved (2) Back pain: Code(s): M54.9 - Dorsalgia, unspecified Category: Medical Plan: Right lower and mid back pain This appears to be a muscle strain He can use naproxen, ice/heat, relative rest and will refer him for physical therapy Avoid heavy lifting at the gym (3) Right arm pain: Code(s): M79.601 - Pain in right arm Category: Medical Plan: Right forearm pain History of right lateral epicondylitis This appears to be a tendinopathy He can use naproxen, ice/heat, relative rest and bracing as well as occupational therapy Avoid heavy lifting at gym Orders: Orders Comprehensive Met. Panel Today R10.9 - Unspecified abdominal pain Lipase Today R10.9 - Unspecified abdominal pain UA CC w/rflx Micro + Cult Today R10.9 - Unspecified abdominal pain, Z00.00 - Encounter for general adult medical examination without abnormal findings Lactate Dehydrogenase Today R10.9 - Unspecified abdominal pain XR KUB Today R10.9 - Unspecified abdominal pain PT Evaluation and Treatment Today M54.9 - Dorsalgia, unspecified Complete Blood Count Auto Diff Today R10.9 - Unspecified abdominal pain, Z00.00 - Encounter for general adult medical examination without abnormal findings AMB Urinalysis Automated Today R10.9 - Unspecified abdominal pain, Z13.9 - Encounter for screening, unspecified OT Evaluation and Treatment Today M77.8 - Other enthesopathies, not elsewhere classified, M79.601 - Pain in right arm Medications: New polyethylene glycol 3350 (Miralax) 17 grams PO DAILY 14 ea 0RF 14 days naproxen 500 mg PO BID PRN 60 tabs 0RF pain 30 days
[2025-08-04 14:49] VITALS: BP 114/68; PULSE 92; RESP 13; TEMP 36.5; O2SAT 99; BMI 24.6
== END 2025-08-04 15:47 | disposition home or self-care (01) ==
LOC: HO.HMCFM 14:42
PROVIDERS: PCP Family Medicine; Visit Provider Family Medicine
DX: R10.9 Unspecified abdominal pain (principal); M54.9 Dorsalgia, unspecified; M79.601 Pain in right arm

== ENCOUNTER 2025-08-07 09:03 | Outpatient (REF) | payer OTHER, SELFPAY ==
--- NOTE | ~2025-08-07 | XR_ITS ---
EXAMINATION: XR ABDOMEN KUB CLINICAL INDICATION: R10.9 - Unspecified abdominal pain COMPARISON: None available. TECHNIQUE: 2 AP of the abdomen. FINDINGS: The bowel gas pattern is normal with no evidence of ileus or obstruction. Moderate to large volume stool in the colon. No unusual soft tissue calcifications are noted. No gross pneumoperitoneum on the supine views. No acute osseous findings. Lung bases are clear.. XR/XR KUB IMPRESSION: Moderate-large volume stool in the colon. Electronically signed by: Ilya Lobato MD 08/07/2025 02:14 PM EST
== END 2025-08-07 09:04 | disposition home or self-care (01) ==
LOC: HO.XRAY 09:03
PROVIDERS: PCP Family Medicine; Visit Provider Family Medicine
DX: R10.9 Unspecified abdominal pain (principal)
CPT/HCPCS: 74018

== ENCOUNTER → 2025-08-07 09:07 | Outpatient (BNV) | payer OTHER, SELFPAY | PROVIDERS: PCP Family Medicine; Visit Provider Radiology Diagnostic Ultrasound | DX: R10.9 Unspecified abdominal pain (principal) | CPT/HCPCS: 74018 ==

== ENCOUNTER 2025-08-11 12:41 | Outpatient (AMB) | payer OTHER, SELFPAY ==
--- NOTE | 2025-08-11 12:39 | MHC.PC.OV ---
Intake Visit Reasons: f/u abd. pain via telemedicine Intake Note: Telehealth follow up on abd px Billing Typist Required: No Allergies No Known Allergies Allergy (Verified 08/11/25 12:40) Medication List - Last Reconciled 08/11/25 by Grey Larry MD naproxen 500 mg PO BID PRN 30 days polyethylene glycol 3350 (Miralax) 17 grams PO DAILY 14 days sildenafil 50 mg PO DAILY PRN Tobacco use date assessed: 08/11/25 Dental Screening Dental Screen Date: 08/11/25 Did you have a dental visit in the last 12 months?: Yes Did you have a dental problem in the last 6 months where you did not have access to dental care?: No Was dental information given to patient?: Patient has dentist HPI f/u abd. pain via telemedicine HPI Details 35 y/o male presents to f/u abd. pain via telemed. KUB xray 08/07/25 shows moderate-large volume stool in colon. Started pt on physical therapy and occupational therapy for back and arm pain. Still reports ongoing abd. discomfort. Pt notes he has started occupational therapy Sunday. Pt notes pain is already improving. [facility] Medical History (Updated 08/04/25 @ 15:42 by Grey Larry MD) Pure hypercholesterolemia OCD (obsessive compulsive disorder) Anxiety IBS (irritable bowel syndrome) Palpitations Surgical History (Updated 04/28/24 @ 10:46 by Saab Peters [facility]) No pertinent past surgical history Family History Paternal Uncle Substance abuse Mental health disorder Maternal Grandfather Mental health disorder Mother Mental health disorder High blood pressure High cholesterol Father Hypothyroid Maternal Grandmother High blood pressure Paternal Grandfather Cancer of kidney Paternal Grandmother Cardiovascular disease Social History (Updated 08/04/25 @ 14:49 by Betzaida Delatorre [facility]) Household Members: Family Both parents involved: Yes Caregiver staying overnight: No Housing: House Are you a primary rn medicare to a significant other at home: No Do you presently have visiting nurse or other home services: No 75 years or older and lives alone: No Alcohol intake: current Alcohol intake frequency: 0-2 drinks per day Alcohol type: beer and hard liquor Patient Tobacco Use Status: Current someday Tobacco user Cigarette Packs Per Day: 2 Cigarettes Per Day: 2 e-Cigarette/Vaping Use: Former Use Second Hand Smoke Exposure: No Substance Use Type: Marijuana service: No Current occupational status: employed 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, [employer]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 Cognitive needs: No Hearing needs: No Vision needs: No Questionnaire Thrive Questionnaire Date Thrive assessed: 05/03/25 I am a: Patient What is your living situation today?: I have a steady place to live Within the past 12 months, did the food you bought not last and you didn't have the money to get more?: Never true Within the past 12 months, did you worry whether your food would run out before you got money to buy more?: Never true Do you have trouble paying for medicines?: No Do you have trouble getting transportation to medical appointments?: No Do you have trouble paying your heating and electricity bill?: No Do you have trouble taking care of your child, family member or friend?: No Do you have trouble with day-to-day activities such as bathing, preparing meals, shopping, managing finances, etc.?: No Are you currently unemployed and looking for a job?: No Are you interested in more education?: No Please select the resources that you would like help with: None Currently or been in a relationship where the following occur: No concerns reported THRIVE Score: 0 PIEDAD-7 AMB Questionnaire PIEDAD-7 Date PIEDAD - 7 assessed: 05/05/25 Source: Developed by Drs. Nii Rodrigues, Angella Funk, Tylor Reese and colleagues, with an educational elva from [employer]. Review of Systems Const Denies chills, Denies fatigue, Denies fever(s), Denies headache(s) and Denies weakness ENT Denies dizziness and Denies headache(s) Card Denies dyspnea Resp Denies cough, Denies dyspnea, Denies wheezing and Denies other (shortness of breath) Musc Denies numbness and Denies tingling Neuro Denies dizziness, Denies headache(s), Denies numbness, Denies tingling and Denies weakness Psych Denies anxiety and Denies depression Endo Denies fatigue Aller/Immun Denies wheezing Physical exam (Primary Care) Tobacco/Smoking Status: Tobacco use Status Tobacco use date assessed 08/11/25 08/11/25 12:41 Patient Tobacco Use Status Current someday Tobacco 08/11/25 12:41 e-Cigarette/Vaping Use Former Use 08/11/25 12:41 Thrive Assessment: Date of Thrive Assessment Date Thrive assessed 05/03/25 08/11/25 12:41 Currently or been in a relationship where the following occur: No concerns reported Telehealth Telehealth Telehealth Platform: Telephone Location of provider rendering services: practice address Location of patient: address on file Patient Identification confirmed using: Name, : Yes Telehealth method: voice only Patient verbally consented to treatment: Yes Patient verbally consented to billing insurance company: Yes Patient informed of any privacy concerns related to visit: Yes Minutes spent on Phone/Video with Pt.: 8 Coding Level of Care Code Tele Est Pt Level 2 (69507) Diagnoses Abdominal pain R10.9 Back pain M54.9 Right arm pain M79.601 Assessment & Plan Assessment & Plan (1) Abdominal pain: Code(s): R10.9 - Unspecified abdominal pain Category: Medical Plan: Patient only just started MiraLax and clear liquid diet with advance of diet, in the last few days. KUB had shown significant stool burden Continue good hydration and MiraLax. Call or return to office if worsening or not improving (2) Back pain: Code(s): M54.9 - Dorsalgia, unspecified Category: Medical Plan: He will be starting physical therapy Also using naproxen However, patient also notes that some of his back pain is associated with the abdominal pain and so may improve with the above regimen. (3) Right arm pain: Code(s): M79.601 - Pain in right arm Category: Medical Plan: Significant improvements already with naproxen and occupational therapy Continue current regimen Orders: Orders Lipid Panel Today E78.00 - Pure hypercholesterolemia, unspecified, Z00.00 - Encounter for general adult medical examination without abnormal findings Comprehensive [place]. Panel Fast Today E78.00 - Pure hypercholesterolemia, unspecified, Z00.00 - Encounter for general adult medical examination without abnormal findings
== END 2025-08-11 17:05 | disposition home or self-care (01) ==
LOC: HO.HMCFM 12:42
PROVIDERS: PCP Family Medicine; Visit Provider Family Medicine
DX: R10.9 Unspecified abdominal pain (principal); M54.9 Dorsalgia, unspecified; M79.601 Pain in right arm